=== PATIENT | male | born 1965 | race American Indian/Alaskan Native ===

== ENCOUNTER 2024-09-05 04:06 | Emergency (ER) | payer MEDICAID, SELFPAY ==
[2024-09-05] VITALS (12 sets, daily range): BP systolic 135–183; BP diastolic 85–138; PULSE 64–103; RESP 12–30; TEMP 36.5–36.8; O2SAT 88–98; BMI 29.8
--- NOTE | 2024-09-05 04:22 | PC.RT ---
pt on 4L nc hr 101, spo2 96, RR26.
--- NOTE | 2024-09-05 04:29 | PD.EDSOB ---
ED SOB =RME/HPI General Chief Complaint: Shortness of Breath/Dyspnea Stated Complaint: SOB Time Seen by Provider: 09/05/24 04:28 Arrival date/time: 09/05/24 04:06 RME / HPI RME / HPI Narrative: Dr. Fuentes?s Main ED Evaluation: 59yo male with a history of CHF, HTN, cardiomyopathy, BPH BIBA from home presents to the ED for a chief complaint of shortness of breath. Patient states his shortness of breath has been worsening over the last 7 days. He states he ran out of his Lasix over one month ago, reporting he does not have his appointment with his PCP until 09/08/24. Patient denies any chest pain, fever, chills or any other associated symptoms. Denies any recent illicit drug use. No known allergies. Related Data Home Medications ?Medication ?Instructions ?Recorded ?Confirmed acetaminophen 325 mg capsule 500 mg 03/10/24 (Tylenol) clonidine HCl 0.2 mg tablet 0.2 mg PO TID 03/10/24 03/10/24 furosemide 40 mg tablet (Lasix) 40 mg PO BID 03/10/24 03/10/24 spironolactone 25 mg tablet 25 mg PO BID 03/10/24 03/10/24 tamsulosin 0.4 mg capsule 0.4 mg PO 03/10/24 trazodone 100 mg tablet 100 mg PO HS 03/10/24 03/10/24 Previous Rx's ?Medication ?Instructions ?Recorded atorvastatin 40 mg tablet 40 mg PO QPM #30 tabs 03/11/24 carvedilol 25 mg tablet (Coreg) 25 mg PO BID #60 tabs 03/11/24 amlodipine 5 mg tablet 5 mg PO QDAY #30 tabs 03/12/24 Allergies Allergy/AdvReac Type Severity Reaction Status Date / Time No Known Allergies Allergy Verified 01/01/22 18:49 Review of Systems Review of Systems Systems Reviewed: All systems reviewed, normal except as documented Past Medical History Past Medical History NEUROLOGIC: Positive Subdural Hematoma and Traumatic Brain Injury; Negative Neurological Disorders, Cerebrovascular Accident, Transient Ischemic Attacks (TIA), Dementia, Alzheimer's Disease, Parkinson's Disease, Brain Tumor, Meningitis, Seizures, Epilepsy, Multiple Sclerosis, Cerebral Palsy, Amyotrophic Lateral Sclerosis (ALS/Madeline Gehrig's), Guillain-[place] Syndrome, Spina Bifida, Paralysis, Peripheral Neuropathy, Becerra's Palsy, Migraine, Head Trauma or Spinal Cord Injury CARDIAC: Positive Cardiac Disorders, Congestive Heart Failure, Cardiomyopathy, Pericarditis and Hypertension; Negative Myocardial Infarction ( i dont know, I dont think so ), Cardiac Arrhythmia, Atrial Fibrillation, Angina, Heart Murmur, Coronary Artery Disease, Atherosclerotic Heart Disease, Peripheral Vascular Disease, Hypercholesterolemia, Aneurysm, Congenital Heart Disease, Valvular Heart Disease, Rheumatic Fever, Edema, Cellulitis, Deep Vein Thrombosis, Hypotension or Varicose Veins RESPIRATORY: Negative Chronic Obstructive Pulmonary Disease (COPD), Asthma, Bronchitis, Emphysema, Pneumonia, Pulmonary Fibrosis, Cystic Fibrosis, Tuberculosis, Pulmonary Embolism, Pulmonary Edema or Sleep Apnea GASTROINTESTINAL: Positive Gastroesophageal Reflux Disease; Negative Gastrointestinal Disorders, Hepatitis, Cirrhosis, Pancreatitis, Celiac Disease, Gall Bladder Disease, Gastrointestinal Bleed, Esophageal Varices, Coleman's Esophagus, Colitis, Ulcerative Colitis, Diverticulitis, Diverticulosis, Ulcer, Colorectal Cancer, Irritable Bowel, Crohn's Disease, Obstructive Bowel, Hiatal Hernia, Hemorrhoids or Obesity GENITOURINARY: Negative Genitourinary Disorders, Renal Disease, Kidney Stones, Polycystic Kidney Disease, Inguinal Hernia, Dialysis, Prostate Cancer or Benign Prostatic Hyperplasia REPRODUCTIVE: Negative Breast Cancer, Fibroids (n/a), Genital Herpes, Gonorrhea, Syphilis or Testicular Cancer MUSCULOSKELETAL: Positive Fractures; Negative Musculoskeletal Disorders, Muscular Dystrophy, Myasthenia Gravis, Marfan's Syndrome, Bone Cancer, Arthritis, Rheumatoid Arthritis, Osteoporosis, Degenerative Disk Disease, Gout, Scoliosis, Carpal Tunnel Syndrome, Fibromyalgia, Degenerative Joint Disease, Osteomyelitis or Poliovirus ENT: Positive Ear Infection; Negative Cataracts, Glaucoma, Blind, Retinal Detachment, Macular Degeneration, Deafness, Head Trauma or Eye Prosthesis ENDOCRINE: Negative Endocrine Disorders, Diabetes Mellitus Type 1, Diabetes Mellitus Type 2, Hypoglycemia, Milton's Syndrome, [place]'s Disease, Hyperthyroidism, Hypothyroidism, Parathyroid Disease, Pituitary Disease, Systemic Lupus Erythematosus, Syndrome of Inappropriate Antidiuretic Hormone (SIADH), Adrenal Disease or Graves' Disease HEMATOLOGIC: Negative Blood Disorders, Anemia, Leukemia, Hemophilia, Thalassemia, Sickle Cell Disease or Clotting Problems PSYCHO/SOCIAL: Positive Recreational Drug Use; Negative Psychiatric Problems, Schizophrenia, Bipolar Disorder, Depression, Anxiety, Behavior Problems, Self-Mutilation, Attention Deficit Disorder, Attention Deficit Hyperactivity Disorder, Depression (n/a), Post Traumatic Stress Disorder or Eating Disorder OTHER HISTORY: Positive Hospitalization, Blood Transfusions and Chicken Pox; Negative Autoimmune Disease, Down Syndrome, Autism, Developmental Delay, Shingles, Falls, Blood Transfusion Reaction, Anesthesia Reactions, Organ Transplant, Chemotherapy, Radiation Therapy, Hyperbaric Therapy, MRSA, VRSA, Vancomycin-Resistant Enterococci, Human Immunodeficiency Virus (HIV), Measles, Mumps, Rubella (Maori Measles), Pertussis, Clostridium Difficile, Cancer, Breast Cancer, Cervical Cancer (n/a), Colorectal Cancer, Lung Cancer, Ovarian Cancer (n/a), Prostate Cancer or Testicular Cancer Family History FAMILY HISTORY: Positive Family Cardiac Disorders; Negative Family Neurologic Problems, Family Psychiatric Problems, Family Respiratory Disorders, Family Gastrointestinal Problems, Family Cancer, Family Surgery or Family Anesthesia Reaction Surgical History SURGICAL: Negative Cardiac Surgery, Open Heart Surgery, Coronary Artery Bypass Graft, Valve Replacement, Vascular Surgery, Coronary Stent, Cardiac Catheterization, Pacemaker, Angiogram, Auto Implanted Cardiovert Defib, Carotid Endarterectomy, Endocrine Surgery, Thyroidectomy, Ear Surgery, Tympanostomy Tube, Eye Surgery, Nose Surgery, Oral Surgery, Tonsillectomy, Adenoidectomy, Cochlear Implant, Corneal Transplant, Throat Surgery, Abdominal Surgery, Tracheostomy, Gastric Bypass Surgery, Gastrostomy, Bowel Surgery, Nephrectomy, Transurethral Resection, Joint Replacement, Amputation, Open Reduction Internal Fixation, Arthroscopy, Neurologic Surgery, Brain Shunt, Vasectomy or Organ Transplant Social History SMOKING STATUS: Never smoker SECOND HAND EXPOSURE: Yes SUBSTANCE USE: methamphetamine ED Exam Narrative Physical exam: GENERAL APPEARANCE: alert and oriented x 4, well-developed, well-nourished, no acute distress VITALS: All vitals were reviewed and the pulse ox is 97% on 4L/NC, which is hypoxic according to my interpretation. HEENT: Normocephalic, atraumatic; pupils equal, round, reactive to light; EOMI; mucous membranes pink, moist; oropharynx clear NECK: Supple LUNGS: Rales and rhonchi bilaterally HEART: Tachycardic, regular rhythm; normal S1, S2; no murmurs ABDOMEN: non distended; normal BS; soft, no tenderness, no guarding, no rebound; no masses, no organomegaly, no hernia BACK: no CVA tenderness EXTREMITIES: atraumatic; 2+ pitting edema bilaterally NEUROLOGIC: awake; alert and oriented x4; cranial nerves II-XII grossly intact; no focal sensory or motor deficits PSYCHIATRIC: appropriate mood and affect SKIN: warm, dry, normal color; no rashes Course Course Course Narrative: CXR is ordered for determining the etiology of shortness of breath. Quality Measures none Orders Category Date Time Status Bedside COVID-19 Antigen Test NOW Care 09/05/24 04:22 Active Bedside Influenza A&B Antigen Test NOW Care 09/05/24 04:22 Completed Operations Leader STAT Care 09/05/24 04:48 Active Continuous Pulse Oximetry ONCE Care 09/05/24 04:48 Active EKG (ED ONLY) *Do not use* NOW Care 09/05/24 04:17 Completed In and Out Catheter X1 Care 09/05/24 04:48 Active Insert IV STAT Care 09/05/24 04:48 Completed EKG (ED Only) Stat Exams 09/05/24 04:16 Ordered XR chest 1V portable Stat Exams 09/05/24 04:48 Taken B-Type Natriuretic Peptide Stat Lab 09/05/24 04:37 Received CBC Stat Lab 09/05/24 04:37 Completed Comprehensive Metabolic Panel Stat Lab 09/05/24 04:37 Received Drug Screen,Urine Stat Lab 09/05/24 04:50 Ordered Magnesium Stat Lab 09/05/24 04:37 Received Partial Thromboplastin Time Stat Lab 09/05/24 04:37 Completed Prothrombin Time with INR Stat Lab 09/05/24 04:37 Completed Troponin I Stat Lab 09/05/24 04:37 Received Furosemide Inj [Lasix Inj] Med 09/05/24 04:49 Discontinued 80 mg IVP X1 ONE Labetalol IV [Trandate IV] Med 09/05/24 04:49 Discontinued 20 mg IVP X1 ONE Oxygen Delivery NOW RT 09/05/24 04:48 Active Vital Signs Vital signs: Vital Signs Temperature 98.3 F 09/05/24 04:13 Pulse Rate 102 H 09/05/24 04:13 Respiratory Rate 20 09/05/24 04:13 Blood Pressure 148/85 H 09/05/24 04:13 Pulse Oximetry (%) 95 09/05/24 04:13 Oxygen Delivery Method Nasal Cannula 09/05/24 04:13 Shortness of Breath / Dyspnea MDM Narrative MDM Narrative:: Scribe Attestation: 09/05/24 - I, Conchis Robles, sohan scribing for and in the presence of Dr. Fuentes. 0542: Patient's blood pressure is 142/100 after receiving labetolol and Lasix. Patient data External records reviewed:: [facility] previous records (Per chart review, patient was admitted here on 03/10/24 for cardiomyopathy.) Clinical information provided by:: patient Social determinants that could affect healthcare access:: substance use (history of) Patient has the following chronic illnesses:: CHF, HTN, cardiomyopathy, BPH How is presenting disease/condition affected by chronic disease/condition?: exacerbated by Evaluation data The following diagnostics were reviewed and interpreted by me:: lab results, radiology exam(s) and EKG tracing(s) Lab and/or radiology exams considered but not ordered:: none Interpretation Summary: WBC count is normal, PT and INR are normal, according to my interpretation. CXR shows cardiomegaly, pulmonary vascular congestion, and [id number] pulmonary edema, according to my interpretation. EKG done at 0408, NSR, rate of 99, normal axis, no ectopy, Q waves in V1-V4, QRS: 117, no acute ischemia, according to my interpretation. Medications / Prescriptions Medications or Prescriptions considered but not ordered:: none Medication administrations:: Medication Administration History Discontinued Medications Furosemide (Furosemide Inj 10 Mg/Ml 4ml Vial) 80 mg IVP X1 ONE Stop: 09/05/24 04:50 Last Admin: 09/05/24 05:05 Dose: 80 mg Documented By: EF Labetalol HCl (Labetalol Inj 5 Mg/Ml Vial 20 Ml) 20 mg IVP X1 ONE Stop: 09/05/24 04:50 Last Admin: 09/05/24 05:05 Dose: 20 mg Documented By: EF see above Consultations Consultation(s) initiated? (list below): No Diagnosis Shortness of Breath Differential Diagnosis: community acquired pneumonia, pulmonary embolism and other (CHF exacerbation) Most likely diagnosis given after review of the tests above:: final dx pending at sign out. Admission Indicated Admission indicated?: not indicated Explain why admission is indicated or not indicated:: Final dx pending at signout. Admission Request Was there a request for admission?: No Disposition Plan Disposition Plan: other (specify) (Signed out to Dr. Limon at 0600 pending labs and final disposition.) Discharge Plan Prescriptions/Referrals Prescriptions/Med Rec: No Action spironolactone 25 mg Tablet 25 mg PO BID clonidine HCl 0.2 mg Tablet 0.2 mg PO TID tamsulosin 0.4 mg Capsule 0.4 mg PO trazodone 100 mg Tablet 100 mg PO HS acetaminophen [Tylenol] 325 mg Capsule 500 mg furosemide [Lasix] 40 mg tablet 40 mg PO BID carvedilol [Coreg] 25 mg tablet 25 mg PO BID Qty: 60 0RF Rx Instructions: must administer with a meal/food atorvastatin 40 mg tablet 40 mg PO QPM Qty: 30 0RF amlodipine 5 mg tablet 5 mg PO QDAY Qty: 30 0RF Problem List Clinical Impression: Shortness of breath Patient/Caregiver Discharge Instructions Print Language: Hungarian
--- NOTE | 2024-09-05 04:48 | XR_ITS ---
Examination: AP chest single view Technique one AP portable upright chest single view Exam date and time: September 05, 2024 0500 hrs. Comparison March 10, 2024 Indications: Chest pain today. Findings: Mild heart failure Moderate enlargement cardiac contour Central vascular engorgement with prominent vascular congestion and early septal edema at the lung bases Impression: Mild heart failure
[2024-09-05] MEDS: LABETALOL INJ 5 MG/ML VIAL 20 ML 20 MG IVP (05:05)
[2024-09-05] MEDS: FUROSEMIDE INJ 10 MG/ML 4ML VIAL 80 MG IVP (05:05)
[2024-09-05 05:15] LABS: Basophils # (Auto) 0.1 Thou/mm3 (0.0-0.2); Basophils % (Auto) 1 % (0-2.5); Eosinophils # (Auto) 0.1 Thou/mm3 (0.0-0.5); Eosinophils % (Auto) 1 % (0-10); Hematocrit 43.9 % (41.0-53.0); Hemoglobin 15.2 g/dL (13.5-16.0); Immature Granulocytes % (Auto) 0 % (0-0); Immature Granulocytes Auto 0.02 Thou/mm3 (0.00-0.00); Lymphocytes # (Auto) 0.9 Thou/mm3 (1.0-4.8); Lymphocytes % (Auto) 8 % (10-50); Mean Corpuscular HGB Conc 34.6 g/dl (31.0-37.0); Mean Corpuscular Hemoglobin 31.9 pg (25.0-35.0); Mean Corpuscular Volume 92 fL (80-100); Monocytes # (Auto) 0.7 Thou/mm3 (0.0-0.8); Monocytes % (Auto) 7 % (0-12); Neutrophils # (Auto) 8.8 Thou/mm3 (1.8-7.7); Neutrophils % (Auto) 84 % (37-80); Nucleated Red Blood Cell % 0 /100 WBC (0); Platelet Count 133 Thou/mm3 (140-440); RDW Standard Deviation 44.1 fL (35.1-43.9); Red Blood Count 4.77 Miln/mm3 (4.50-5.90); White Blood Count 10.5 Thou/mm3 (3.8-10.6)
[2024-09-05 05:33] LABS: INR 1.1 (0.9-1.3); Partial Thromboplastin Time 22.4 Seconds (22.0-36.0); Prothrombin Time 11.6 Seconds (9.0-12.2)
[2024-09-05 05:49] LABS: Alanine Aminotransferase 34 U/L (10-49); Albumin, Serum 4.2 gm/dL (3.4-4.8); Albumin/Globulin Ratio 1.4 (1.2-2.2); Alkaline Phosphatase 146 U/L (46-116); Anion Gap 9 (7-16); Aspartate Amino Transferase 33 U/L (0-34); BUN/Creatinine Ratio 21 Ratio (12-20); Bilirubin,Total 1.4 mg/dL (0.3-1.2); Blood Urea Nitrogen 35 mg/dL (9-23); Calcium 9.5 mg/dL (8.3-10.6); Calcium (Corrected) 9.5 mg/dL (8.5-10.1); Carbon Dioxide 26.2 mMol/L (20.0-31.0); Chloride 109 mMol/L (98-107); Creatinine (Component) 1.7 mg/dL (0.6-1.3); Estimated Creatinine Clearance 55.8 mL/min (>60); Glucose 105 mg/dL (74-106); Magnesium 2.1 mg/dL (1.6-2.6); Osmolality,Calculated 294 (275-295); Potassium 3.2 mMol/L (3.4-5.1); Sodium 144 mMol/L (136-145); Total Protein 7.2 gm/dL (5.7-8.2); eGFR 45 See Note
[2024-09-05 06:14] LABS: Troponin I 0.744 ng/mL (0.0-0.045)
--- NOTE | 2024-09-05 06:16 | PD.EDADDENDU ---
Emergency Room Addendum Addendum Narrative: 0600: Care assumed from Dr. Funetes, the previous shift emergency physician. Past medical, surgical, social and family history reviewed. Vitals and home medications reviewed. I will assume the care of the patient at this time, pending remainder of labs and final disposition. Please refer to the emergency department record for history and examination from initial visit.? Physical exam by me shows patient under no acute distress at this time. 1016: I discussed results and/or management with the patient and offered admission but the patient refused and would like to go home. Patient states he feels good and would like to go home. Strict return precautions were outlined. Patient was also told to follow up with his PCP tomorrow. Patient was discharged in stable condition. Diagnoses: - Mild CHF - Amphetamine use - Accelerated hypertension - Elevated trop - Hypokalemia - Renal insufficiency
[2024-09-05 06:29] LABS: B-Type Natriuretic Peptide 1559 pg/mL (0-100)
[2024-09-05 07:17] LABS: Amphetamine/Methamp Scrn,U Positive (Negative); Barbiturate Screen,Urine Negative (Negative); Benzodiazepines Screen,Urine Negative (Negative); Benzoylecgonine Screen, Ur Negative (Negative); Fentanyl Screen,Urine Negative (Negative); Opiate Screen,Urine Negative (Negative); THC Screen,Urine Positive (Negative)
--- NOTE | 2024-09-05 07:30 | PC.NURSE ---
Upon inital assessment and introduction, pt refusing to keep tele monitoring on. pt took off all his tele leads, pox, and bp cuff. This RN connected him back to all equipment and request that he push his call yu if he needs to get oob. Pt in agreement. PT reports that he feels good, just when he closes his eyes he feels sob. Pt denies any pain or discomfort at this time, will cont w/poc.
--- NOTE | 2024-09-05 09:50 | PC.NURSE ---
pts BP elevated provider made aware and order placed.
--- NOTE | 2024-09-05 10:00 | PC.NURSE ---
when going t oadminister labetalol, pt refuses, states when he got it earlier it made him sweat. Provider made aware will put in alernative.
[2024-09-05] MEDS: POTASSIUM CHLORIDE 20 mEq TABCR 40 MEQ PO (10:24)
[2024-09-05] MEDS: hydrALAZINE INJ 20 MG/ML VIAL 10 MG IV (10:25)
[2024-09-05] MEDS: cloNIDine HCL 0.1 MG TABLET PO (10:25)
[2024-09-05 11:13] LABS: Troponin I 0.666 ng/mL (0.0-0.045)
[2024-09-05] MEDS: metOLazone 2.5 MG TABLET 10 MG PO (11:40)
== END 2024-09-05 11:48 | disposition home or self-care (01) ==
PROVIDERS: Family Medicine; Emergency Provider Emergency Medicine; PCP Family Medicine
DX: I11.0 Hypertensive heart disease with heart failure (principal); I50.9 Heart failure, unspecified; F15.90 Other stimulant use, unspecified, uncomplicated; E87.6 Hypokalemia; N28.9 Disorder of kidney and ureter, unspecified; I44.0 Atrioventricular block, first degree; I45.10 Unspecified right bundle-branch block; I42.9 Cardiomyopathy, unspecified; Z77.22 Contact with and (suspected) exposure to environmental tobacco smoke (acute) (chronic)
CPT/HCPCS: 36415; 71045; 80053; 80307; 83735; 83880; 84484; 85025; 85610; 85730; 87400; 87811; 93005; 96374; 99284; J0360; J1938; J3490; A9270; J1920

== ENCOUNTER 2025-03-03 10:36 | Emergency (ER) | payer MEDICAID, SELFPAY ==
[2025-03-03] VITALS (8 sets, daily range): BP systolic 168–188; BP diastolic 106–120; PULSE 65–89; RESP 18–20; TEMP 36–36.4; O2SAT 95–100; BMI 32.5
--- NOTE | 2025-03-03 10:44 | EKG_ITS ---
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: : [id number] Requested By: Kiara Black Order Number: [id number] Reading MD: Kiara Black Measurements Intervals Reading Rate: 82 P: 53 [place]: 245 QRS: -62 QRSD: 118 T: 90 QT: 434 QTc: 509 Interpretive Statements SINUS RHYTHM WITH FIRST DEGREE AV BLOCK POSSIBLE LEFT ATRIAL ENLARGEMENT [-0.1mV P-WAVE IN V1/V2] LEFT AXIS DEVIATION [QRS AXIS < -30] INCOMPLETE RIGHT BUNDLE BRANCH BLOCK [90+ ms QRS DURATION, TERMINAL R IN V1/V2, 40+ ms S IN I/aVL/V4/V5/V6] PROLONGED QT INTERVAL Compared to ECG 05/24/2022 04:50:34 First degree AV block now present Left-axis deviation now present Prolonged QT interval now present Indeterminate axis no longer present /store/S0/[id number].pdf
--- NOTE | 2025-03-03 10:48 | PD.EDSOB ---
ED SOB =RME/HPI General Chief Complaint: Shortness of Breath/Dyspnea Stated Complaint: SOB Time Seen by Provider: 03/03/25 10:39 Arrival date/time: 03/03/25 10:36 RME / HPI RME / HPI Narrative: DR. BAL MAIN ED EVALUATION: 59-year-old male with past medical history of CHF, hypertension, cardiomyopathy, and benign prostatic hyperplasia presents to the Emergency Department BIBA from home for shortness of breath x2 days. The patient reports associated mild cough but denies chest pain, fever, or other symptoms. No recent travel or sick contacts. He follows with PCP Dr. Delgado and airline hostess Dr. Bro. Related Data Home Medications ?Medication ?Instructions ?Recorded ?Confirmed acetaminophen 325 mg capsule 500 mg 03/10/24 (Tylenol) clonidine HCl 0.2 mg tablet 0.2 mg PO TID 03/10/24 03/10/24 furosemide 40 mg tablet (Lasix) 40 mg PO BID 03/10/24 03/10/24 spironolactone 25 mg tablet 25 mg PO BID 03/10/24 03/10/24 tamsulosin 0.4 mg capsule 0.4 mg PO 03/10/24 trazodone 100 mg tablet 100 mg PO HS 03/10/24 03/10/24 Previous Rx's ?Medication ?Instructions ?Recorded atorvastatin 40 mg tablet 40 mg PO QPM #30 tabs 03/11/24 carvedilol 25 mg tablet (Coreg) 25 mg PO BID #60 tabs 03/11/24 amlodipine 5 mg tablet 5 mg PO QDAY #30 tabs 03/12/24 amlodipine 5 mg tablet 5 mg PO QDAY #30 tabs 09/05/24 carvedilol 25 mg tablet 25 mg PO BID #30 tabs 09/05/24 clonidine HCl 0.2 mg tablet 0.2 mg PO Q8H #30 tabs 09/05/24 furosemide 40 mg tablet (Lasix) 40 mg PO BID #60 tabs 09/05/24 metolazone 5 mg tablet 5 mg PO QDAY #10 tabs 09/05/24 potassium chloride 10 mEq 10 meq PO BID #30 tabs 09/05/24 tablet,extended release(part/cryst) Allergies Allergy/AdvReac Type Severity Reaction Status Date / Time No Known Allergies Allergy Verified 01/01/22 18:49 Review of Systems Review of Systems Systems Reviewed: All systems reviewed, normal except as documented Past Medical History Past Medical History NEUROLOGIC: Positive Subdural Hematoma and Traumatic Brain Injury CARDIAC: Positive Cardiac Disorders, Congestive Heart Failure, Cardiomyopathy, Pericarditis and Hypertension GASTROINTESTINAL: Positive Gastroesophageal Reflux Disease MUSCULOSKELETAL: Positive Fractures ENT: Positive Ear Infection OTHER HISTORY: Positive Hospitalization, Blood Transfusions and Chicken Pox Family History FAMILY HISTORY: Positive Family Cardiac Disorders Social History SMOKING STATUS: Unknown if ever smoked SECOND HAND EXPOSURE: Yes SUBSTANCE USE: methamphetamine ED Exam Narrative Physical exam: GENERAL APPEARANCE: alert and oriented x 4, well-developed, well-nourished VITALS: All vitals were reviewed and the pulse ox is 99% on room air, which is normal according to my interpretation. HEENT: Normocephalic, atraumatic; pupils equal, round, reactive to light; EOMI; mucous membranes pink, moist; oropharynx clear NECK: Supple LUNGS: CTABL; no wheezes, no rales, no rhonchi HEART: Regular rate, regular rhythm; normal S1, S2; no murmurs ABDOMEN: Moderately distended; soft, non-tender; no guarding or rebound; bowel sounds present BACK: no CVA tenderness EXTREMITIES: atraumatic; no edema NEUROLOGIC: awake; alert and oriented x4; cranial nerves II-XII grossly intact; no focal sensory or motor deficits PSYCHIATRIC: appropriate mood and affect SKIN: warm, dry, normal color; no rashes Course Quality Measures none Orders Category Date Time Status Baker Operator Automatic NOW Care 03/03/25 10:48 Active EKG (ED ONLY) *Do not use* NOW Care 03/03/25 10:44 Completed EKG (ED Only) Stat Exams 03/03/25 10:44 Draft XR chest 1V portable Stat Exams 03/03/25 10:48 Completed Alcohol, Blood Medical Stat Lab 03/03/25 10:50 Completed B-Type Natriuretic Peptide Stat Lab 03/03/25 10:50 Completed CBC Stat Lab 03/03/25 10:50 Completed Comprehensive Metabolic Panel Stat Lab 03/03/25 10:50 Completed Drug Screen,Urine Stat Lab 03/03/25 12:37 Completed Lipase Stat Lab 03/03/25 10:50 Completed Magnesium Stat Lab 03/03/25 10:50 Completed Partial Thromboplastin Time Stat Lab 03/03/25 10:50 Completed Prothrombin Time with INR Stat Lab 03/03/25 10:50 Completed Troponin I Stat Lab 03/03/25 10:50 Completed UA, C/S IF [Urinalysis, C/S if Indicated] Stat Lab 03/03/25 12:37 Completed Furosemide Inj [Lasix Inj] Med 03/03/25 14:59 Discontinued 40 mg IVP X1 ONE hydrALAZINE INJ [Apresoline Inj] Med 03/03/25 12:56 Discontinued 10 mg IVP X1 ONE hydrALAZINE INJ [Apresoline Inj] Med 03/03/25 14:59 Discontinued 10 mg IVP X1 ONE Vital Signs Vital signs: Vital Signs Temperature 97.6 F 03/03/25 10:42 Pulse Rate 82 03/03/25 10:42 Blood Pressure 169/120 H 03/03/25 10:42 Pulse Oximetry (%) 99 03/03/25 10:42 Oxygen Delivery Method Room Air 03/03/25 10:42 Shortness of Breath / Dyspnea MDM Narrative MDM Narrative:: I, Ana Lilia Gilliland, am scribing for and in the presence of Dr. Bal. Patient data External records reviewed:: [facility] previous records and EMS form Clinical information provided by:: patient and EMS Social determinants that could affect healthcare access:: none Patient has the following chronic illnesses:: CHF, hypertension, cardiomyopathy, and benign prostatic hyperplasia. He follows with PCP Dr. Delgado and airline hostess Dr. Bro. How is presenting disease/condition affected by chronic disease/condition?: exacerbated by Evaluation data The following diagnostics were reviewed and interpreted by me:: lab results, radiology exam(s) and EKG tracing(s) (My interpretation: EKG performed at 1048 hours, first degree AV block, rate 82, left axis deviation, no acute ischemic changes) Lab and/or radiology exams considered but not ordered:: none Interpretation Summary: Procedure(s): XR chest 1V portable Accession Number(s): [id number] cc: Reyes Beckham MD; Kiara Bla MD~ EXAMINATION: AP chest single view TECHNIQUE: AP portable upright chest single view Date and time: March 03, 2025, 11:06 a.m., comparison September 05, 2024 INDICATIONS: Chest pain shortness of breath today. FINDINGS: Moderate enlargement left ventricle Mild to moderate vascular congestion. No lobar pneumonia or pulmonary edema. IMPRESSION: Moderate enlargement left ventricle Mild to moderate vascular congestion Dictated By: Reyes Beckham MD Medications / Prescriptions Medications or Prescriptions considered but not ordered:: none Medication administrations:: Medication Administration History Discontinued Medications Furosemide (Furosemide Inj 10 Mg/Ml 4ml Vial) 40 mg IVP X1 ONE Stop: 03/03/25 15:00 Hydralazine HCl (Hydralazine Inj 20 Mg/Ml Vial) 10 mg IVP X1 ONE Stop: 03/03/25 12:57 Last Admin: 03/03/25 13:02 Dose: 10 mg Documented By: BD Hydralazine HCl (Hydralazine Inj 20 Mg/Ml Vial) 10 mg IVP X1 ONE Stop: 03/03/25 15:00 see above if any Consultations Consultation(s) initiated? (list below): No Diagnosis Shortness of Breath Differential Diagnosis: other (CHF exacerbation, pneumonia, and viral bronchitis.) Most likely diagnosis given after review of the tests above:: Dyspnea CHF Methamphetamine abuse Admission Indicated Admission indicated?: not indicated Admission Request Was there a request for admission?: No Disposition Plan Disposition Plan: Discharge Discharge Attestation Discharge Attestation: The patient and all family members were given an opportunity to ask questions and understood the discharge instructions. Discharge instructions specifically effects, indications for sooner follow up or return to the emergency department, and the expected course of current diagnosis. Patient condition: Stable Discharge Plan Plan Patient Disposition: HOME (Self Care) Prescriptions/Referrals Prescriptions/Med Rec: No Action spironolactone 25 mg Tablet 25 mg PO BID clonidine HCl 0.2 mg Tablet 0.2 mg PO TID tamsulosin 0.4 mg Capsule 0.4 mg PO trazodone 100 mg Tablet 100 mg PO HS acetaminophen [Tylenol] 325 mg Capsule 500 mg furosemide [Lasix] 40 mg tablet 40 mg PO BID carvedilol [Coreg] 25 mg tablet 25 mg PO BID Qty: 60 0RF Rx Instructions: must administer with a meal/food atorvastatin 40 mg tablet 40 mg PO QPM Qty: 30 0RF amlodipine 5 mg tablet 5 mg PO QDAY Qty: 30 0RF carvedilol 25 mg tablet 25 mg PO BID Qty: 30 0RF Rx Instructions: must administer with a meal/food clonidine HCl 0.2 mg tablet 0.2 mg PO Q8H Qty: 30 0RF furosemide [Lasix] 40 mg tablet 40 mg PO BID Qty: 60 0RF metolazone 5 mg tablet 5 mg PO QDAY Qty: 10 0RF amlodipine 5 mg tablet 5 mg PO QDAY Qty: 30 0RF potassium chloride 10 mEq tablet,ER particles/crystals 10 meq PO BID Qty: 30 0RF Referrals: Brian Robles MD [Primary Care Provider, Family Practice] - In 1 week Problem List Clinical Impression: Dyspnea, CHF (congestive heart failure), Methamphetamine abuse Patient/Caregiver Discharge Instructions Education Materials: Heart Failure Making Changes to ... Print Language: Georgian Stand Alone Forms: Juliette Award Info., Patient Portal Info Letter
[2025-03-03 11:18] LABS: Basophils # (Auto) 0.1 Thou/mm3 (0.0-0.2); Basophils % (Auto) 1 % (0-2.5); Eosinophils # (Auto) 0.1 Thou/mm3 (0.0-0.5); Eosinophils % (Auto) 1 % (0-10); Hematocrit 43.6 % (41.0-53.0); Hemoglobin 15.1 g/dL (13.5-16.0); Immature Granulocytes Auto 0.03 Thou/mm3 (0.00-0.00); Lymphocytes # (Auto) 1.0 Thou/mm3 (1.0-4.8); Lymphocytes % (Auto) 11 % (10-50); Mean Corpuscular HGB Conc 34.6 g/dl (31.0-37.0); Mean Corpuscular Hemoglobin 32.8 pg (25.0-35.0); Mean Corpuscular Volume 95 fL (80-100); Monocytes # (Auto) 0.7 Thou/mm3 (0.0-0.8); Monocytes % (Auto) 8 % (0-12); Neutrophils # (Auto) 6.8 Thou/mm3 (1.8-7.7); Neutrophils % (Auto) 79 % (37-80); Nucleated Red Blood Cell # 0.00 Thou/mm3 (0.00-0.00); Nucleated Red Blood Cell % 0 /100 WBC (0); Platelet Count 131 Thou/mm3 (140-440); RDW Standard Deviation 44.4 fL (35.1-43.9); Red Blood Count 4.60 Miln/mm3 (4.50-5.90); White Blood Count 8.6 Thou/mm3 (3.8-10.6)
[2025-03-03 11:21] LABS: Alanine Aminotransferase 48 U/L (10-49); Albumin, Serum 4.2 gm/dL (3.4-4.8); Albumin/Globulin Ratio 1.6 (1.2-2.2); Alcohol, Blood Medical < 3.0 mg/dL (0-10.0); Alkaline Phosphatase 110 U/L (46-116); Anion Gap 9 (7-16); Aspartate Amino Transferase 58 U/L (0-34); BUN/Creatinine Ratio 14 Ratio (12-20); Bilirubin,Total 0.6 mg/dL (0.3-1.2); Blood Urea Nitrogen 23 mg/dL (9-23); Calcium 9.2 mg/dL (8.3-10.6); Calcium (Corrected) 9.2 mg/dL (8.5-10.1); Carbon Dioxide 24.0 mMol/L (20.0-31.0); Chloride 109 mMol/L (98-107); Creatinine (Component) 1.6 mg/dL (0.6-1.3); Estimated Creatinine Clearance 61.8 mL/min (>60); Globulin 2.7 gm/dL (2.3-3.5); Glucose 111 mg/dL (74-106); Lipase 124 U/L (12-53); Magnesium 2.2 mg/dL (1.6-2.6); Osmolality,Calculated 287 (275-295); Potassium 4.8 mMol/L (3.4-5.1); Sodium 142 mMol/L (136-145); Total Protein 6.9 gm/dL (5.7-8.2); eGFR 49 See Note
[2025-03-03 11:25] LABS: INR 1.0 (0.9-1.3); Partial Thromboplastin Time 27.3 Seconds (22.0-36.0); Prothrombin Time 10.6 Seconds (9.0-12.2)
[2025-03-03 11:44] LABS: B-Type Natriuretic Peptide 812 pg/mL (0-100)
[2025-03-03 11:46] LABS: Troponin I 0.638 ng/mL (0.0-0.045)
--- NOTE | 2025-03-03 12:18 | PC.NURSE ---
Patient provided with 8 0z of water, ok per Dr. Bal
[2025-03-03 12:43] LABS: Collection Type, Urine Clean Catch; Squamous Epithelial Cell,Urine 0 /hpf (0-5)
[2025-03-03 13:02] LABS: Bilirubin,Urine Negative (Negative); Blood,Urine Negative (Negative); Clarity,Urine Clear (Clear/Hazy); Color,Urine Lt-Yellow (Lt Yel-Yel); Culture Indicated,Urine Not Indicated; Glucose, Urine Negative (Negative); Ketones,Urine Negative (Negative); Leukocyte Esterase,Urine Negative (Negative); Nitrite,Urine Negative (Negative); PH,Urine 6.0 (5.0-7.0); Protein,Urine 1+ (Neg - Trace); RBC,Urine 1 /hpf (0-3); Specific Gravity,Urine 1.025 (1.001-1.035); Urobilinogen,Urine Negative mg/dL (0.0-1.0); WBC,Urine 2 /hpf (0-5)
[2025-03-03] MEDS: hydrALAZINE INJ 20 MG/ML VIAL 10 MG IVP ×2 (13:02→15:09)
[2025-03-03 13:20] LABS: Amphetamine/Methamp Scrn,U Positive (Negative); Barbiturate Screen,Urine Negative (Negative); Benzodiazepines Screen,Urine Negative (Negative); Benzoylecgonine Screen, Ur Negative (Negative); Fentanyl Screen,Urine Negative (Negative); Opiate Screen,Urine Negative (Negative); THC Screen,Urine Negative (Negative)
[2025-03-03] MEDS: FUROSEMIDE INJ 10 MG/ML 4ML VIAL 40 MG IVP (15:09)
== END 2025-03-03 15:26 | disposition home or self-care (01) ==
PROVIDERS: Emergency Provider Emergency Medicine; PCP Family Medicine
DX: F15.10 Other stimulant abuse, uncomplicated (principal); I42.9 Cardiomyopathy, unspecified; I11.0 Hypertensive heart disease with heart failure; I50.9 Heart failure, unspecified; N40.0 Benign prostatic hyperplasia without lower urinary tract symptoms
CPT/HCPCS: 36415; 71045; 80053; 80307; 80320; 81001; 83690; 83735; 83880; 84484; 85025; 85610; 85730; 93005; 96374; 96375; 96376; 99283; J0360; J1938; G0480